=== PATIENT | female | born 2000 | race Caucasian/White ===

== ENCOUNTER 2023-11-08 15:55 | Emergency (ER) | payer OTHER ==
[2023-11-08 16:07] VITALS: BP 135/87; PULSE 65; RESP 18; TEMP 99.4; BMI 43.9
== END 2023-11-08 16:27 | disposition home or self-care (01) ==
LOC: FER 15:55
DX: S81.051A Open bite, right knee, initial encounter (principal); S40.811A Abrasion of right upper arm, initial encounter; S40.812A Abrasion of left upper arm, initial encounter; W55.01XA Bitten by cat, initial encounter
CPT/HCPCS: 99283-25